=== PATIENT | female | born 1950 | race Caucasian/White ===

== ENCOUNTER 2021-03-04 06:21 | Day surgery (SDC) | payer MEDICARE, OTHER ==
[2021-02-25 12:18] LABS: BASOPHILS % (AUTO) 0.3 % (0-1); EOSINOPHILS # (AUTO) 0.1 X10'3 (0-0.9); LYMPHOCYTES % (AUTO) 21.4 % (21-51); MEAN CORPUSCULAR HEMOGLOBIN 32.7 PG (27.0-31.0); MEAN CORPUSCULAR HGB CONC 33.5 g/dL (33.0-36.5); MEAN CORPUSCULAR VOLUME 97.6 FL (78-98); MEAN PLATELET VOLUME 7.8 FL (7.4-10.4); MONOCYTES # (AUTO) 0.8 X10'3 (0-0.9); MONOCYTES % (AUTO) 8.4 % (2-12); NEUTROPHILS # (AUTO) 6.4 X10'3 (1.8-7.7); NEUTROPHILS % (AUTO) 68.9 % (42-75); PRE OP HEMATOCRIT 41.3 % (35.0-45.0); PRE OP HEMOGLOBIN 13.8 g/dL (12.0-16.0); PRE OP PLATELET COUNT 297 X10'3 (140-440); RED BLOOD COUNT 4.23 X10'6 (4.20-5.60); RED CELL DISTRIBUTION WIDTH 13.3 % (11.5-14.5)
[2021-02-25 12:30] LABS: ALBUMIN 4.1 G/DL (3.4-5.0); ALBUMIN/GLOBULIN RATIO 1.4 (1.1-1.5); ALKALINE PHOSPHATASE 95 IU/L (46-116); BLOOD UREA NITROGEN 12 MG/DL (7-18); CALCIUM 9.1 MG/DL (8.5-10.1); CHLORIDE 101 MMOL/L (99-107); CREATININE 0.92 MG/DL (0.40-0.90); PRE OP ALT 57 U/L (30-65); PRE OP ANION GAP 11 (8-16); PRE OP AST 37 U/L (10-37); PRE OP BILIRUB, TOTAL 0.5 MG/DL (0.0-1.0); PRE OP GLUCOSE 115 MG/DL (70-104); PRE OP SODIUM 139 MMOL/L (135-145); TOTAL CARBON DIOXIDE 27.4 MMOL/L (24-32); TOTAL PROTEIN 7.1 G/DL (6.4-8.2); eGFR 60 ML/MIN
[~2021-03-04] VITALS: Ht 162.6 cm; Wt 77.6 kg
[~2021-03-04 06:21] MED LIST: ALBU0.63 NEB; ATOR10TA70 PO; DILT30TA10 PO; FLUO10CA28 PO; LEVO13CA4; LISI10TA27 PO; LORA5TAB9 PO; albuterol 2.5 MG/3 ML nebule NEB PRN; cefazolin/dext.iso 2gm/100ml IV ONE; famotidine 20mg tablet PO ONE; ringers solution, lacted 1,000 ML IV SCH
[2021-03-04 06:30] VITALS: BP 135/80
[2021-03-04] MEDS ORDERED: BUPIVAcaine/PF 2.5mg/ml (0.25%) 10ml vial ONE (06:39)
[2021-03-04] MEDS ORDERED: fentaNYL/PF 50MCG/1 ML 2ML syringe ONE (08:00)
[2021-03-04] MEDS ORDERED: midazolam 1 mg/ML 2ml injection ONE (08:01)
[2021-03-04] MEDS ORDERED: propofol inj 20 ML IV ONE (08:20)
[2021-03-04] MEDS ORDERED: LIDOcaine 0.5% (5mg/ml) 50ml vial ONE (08:20)
[2021-03-04 08:35] VITALS: BP 137/75
[2021-03-04] MEDS ORDERED: meperidine/PF 25mg/ml syringe IV PRN (08:35)
[2021-03-04] MEDS ORDERED: proCHLORperazine 10 MG/2 ml inj IV PRN (08:35)
[2021-03-04] MEDS ORDERED: hydrALAZINE 20mg/ml inj. IV PRN (08:35)
[2021-03-04] MEDS ORDERED: morphine 2 MG/ML inj. syringe IV PRN (08:35)
[2021-03-04] MEDS ORDERED: labetalol 20mg/4ml (5mg/ml) syringe IV PRN (08:35)
[2021-03-04] MEDS ORDERED: morphine 4 MG/ML inj SYRINge IV PRN (08:35)
[2021-03-04] MEDS ORDERED: ringers solution, lacted 1,000 ML IV SCH (08:35)
[2021-03-04] MEDS ORDERED: ondansetron/PF 4mg/2ml inj IV PRN (08:35)
[2021-03-04] MEDS ORDERED: acetaminophen 1,000mg/100ml IV 100 ML IV PRN (08:35)
[2021-03-04] MEDS ORDERED: fentaNYL/PF 50MCG/1 ML 2ML syringe IV PRN ×2 (08:35)
--- NOTE | 2021-03-04 08:35 | NUR ---
PT ARRIVED TO RECOVERY VIA GURNEY WITH DR. REESE-REPORT GIVEN, PT AWAKE AND ALERT, VSS, DENIES PAIN, CSM INTACT TO LEFT HAND, WRAP TO LEFT HAND AND ELBOW-CDI. PIV 20G TO RIGHT HAND.
[2021-03-04 08:40] VITALS: BP 137/75
[2021-03-04 09:00] VITALS: BP 150/83
[2021-03-04 09:10] VITALS: BP 134/78
--- NOTE | 2021-03-04 09:15 | NUR ---
PT UP GETING DRESSED, ABLE TO VOID, DENIES PAIN, CSM-INTACT, VSS, PIV D/CD-CANNULA INTACT, DISCHARGE INSTRUCTIONS GIVEN TO PT-ALL QUESTIONS ANSWERED, PT TAKEN WITH ALL BELONGINGS AND ICE TO IN VEHICLE, REMINDED TO WEAR CPAP FOR NEXT 24HRS WHILE SITTING/RESTING.
== END 2021-03-04 09:15 | disposition home or self-care (01) ==
LOC: PAS 06:21 → EDUNIT# 09:00 → PAS 09:15
PROVIDERS: ATTEND Orthopaedic Surgery Hand Surgery
DX: G56.02 Carpal tunnel syndrome, left upper limb (principal); G56.22 Lesion of ulnar nerve, left upper limb; M18.0 Bilateral primary osteoarthritis of first carpometacarpal joints; E03.9 Hypothyroidism, unspecified; F41.9 Anxiety disorder, unspecified; I10 Essential (primary) hypertension; I25.10 Atherosclerotic heart disease of native coronary artery without angina pectoris; G47.33 Obstructive sleep apnea (adult) (pediatric); J44.9 Chronic obstructive pulmonary disease, unspecified; Z88.2 Allergy status to sulfonamides; Z72.89 Other problems related to lifestyle; Z98.890 Other specified postprocedural states; Z79.899 Other long term (current) drug therapy; Z79.82 Long term (current) use of aspirin; Z98.84 Bariatric surgery status; Z87.891 Personal history of nicotine dependence; Z20.822 Contact with and (suspected) exposure to COVID-19
CPT/HCPCS: 36415; 64718; 64721; 80053; 82948; 85025; J2001; J2250; J2704; J3010; J3490; U0003; U0005; Z7506; Z7512; A4215; A6449; J7120

== ENCOUNTER 2021-04-01 06:52 | Day surgery (SDC) | payer MEDICARE, OTHER ==
[2021-03-25 14:52] LABS: BASOPHILS % (AUTO) 0.1 % (0-1); EOSINOPHILS % (AUTO) 0.3 % (0-6); LYMPHOCYTES # (AUTO) 2.3 X10'3 (1.1-4.8); LYMPHOCYTES % (AUTO) 26.4 % (21-51); MEAN CORPUSCULAR HEMOGLOBIN 32.4 PG (27.0-31.0); MEAN CORPUSCULAR HGB CONC 33.6 g/dL (33.0-36.5); MEAN CORPUSCULAR VOLUME 96.5 FL (78-98); MEAN PLATELET VOLUME 7.9 FL (7.4-10.4); MONOCYTES # (AUTO) 0.8 X10'3 (0-0.9); MONOCYTES % (AUTO) 8.6 % (2-12); NEUTROPHILS # (AUTO) 5.7 X10'3 (1.8-7.7); NEUTROPHILS % (AUTO) 64.6 % (42-75); PRE OP HEMOGLOBIN 13.8 g/dL (12.0-16.0); PRE OP PLATELET COUNT 334 X10'3 (140-440); RED BLOOD COUNT 4.24 X10'6 (4.20-5.60); RED CELL DISTRIBUTION WIDTH 13.1 % (11.5-14.5)
[2021-03-25 15:13] LABS: ALBUMIN 4.3 G/DL (3.4-5.0); ALBUMIN/GLOBULIN RATIO 1.3 (1.1-1.5); ALKALINE PHOSPHATASE 94 IU/L (46-116); BLOOD UREA NITROGEN 22 MG/DL (7-18); BUN/CREATININE RATIO 26.8 (6.6-38.0); CHLORIDE 97 MMOL/L (99-107); CREATININE 0.82 MG/DL (0.40-0.90); PRE OP ALT 54 U/L (30-65); PRE OP ANION GAP 7 (8-16); PRE OP AST 31 U/L (10-37); PRE OP BILIRUB, TOTAL 0.6 MG/DL (0.0-1.0); PRE OP GLUCOSE 102 MG/DL (70-104); PRE OP POTASSIUM 4.2 MMOL/L (3.4-5.1); PRE OP SODIUM 135 MMOL/L (135-145); TOTAL CARBON DIOXIDE 31.2 MMOL/L (24-32); TOTAL PROTEIN 7.7 G/DL (6.4-8.2); eGFR 69 ML/MIN
[~2021-04-01] VITALS: Ht 162.6 cm; Wt 77.9 kg
[~2021-04-01 06:52] MED LIST changes: -ALBU0.63 NEB; +ALBU8.5H17 INH; +AMYL1CAP52 PO; +ASPI-1 PO; -ATOR10TA70 PO; +ATOR40TA PO; +DILT180C89 PO; -DILT30TA10 PO; -FLUO10CA28 PO; +FLUO20CA39 PO; -LEVO13CA4; +LEVO75TA PO; -LISI10TA27 PO; +LISI40TA13 PO; -LORA5TAB9 PO; +TRAZ-256 PO; -albuterol 2.5 MG/3 ML nebule NEB PRN; -cefazolin/dext.iso 2gm/100ml IV ONE; +cefazolin/dext.iso 2gm/50ml 50 ML IV ONE
[2021-04-01 07:00] VITALS: BP 155/81
[2021-04-01] MEDS ORDERED: LIDOcaine 0.5% (5mg/ml) 50ml vial ONE (08:04)
[2021-04-01] MEDS ORDERED: morphine 4 MG/ML inj SYRINge IV PRN (08:10)
[2021-04-01] MEDS ORDERED: morphine 2 MG/ML inj. syringe IV PRN (08:10)
[2021-04-01] MEDS ORDERED: fentaNYL/PF 50MCG/1 ML 2ML syringe IV PRN ×2 (08:10)
[2021-04-01] MEDS ORDERED: ondansetron/PF 4mg/2ml inj IV PRN (08:10)
[2021-04-01] MEDS ORDERED: ringers solution, lacted 1,000 ML IV SCH (08:10)
[2021-04-01] MEDS ORDERED: fentaNYL/PF 50MCG/1 ML 2ML syringe ONE (08:16)
[2021-04-01] MEDS ORDERED: MIDAZolam 1 MG/ML 5ML VIAL ONE (08:17)
[2021-04-01] MEDS ORDERED: BUPIVAcaine/PF 2.5mg/ml (0.25%) 10ml vial IJ ONE (08:28)
[2021-04-01 08:52] VITALS: BP 125/62
--- NOTE | 2021-04-01 08:52 | NUR ---
Received from OR via [facility] IN STABEL CONDITION , accompanied by Anesthesiologist and EMPLOYEE RELATIONS ASSISTANT report given by EMPLOYEE RELATIONS ASSISTANT AND Anesthesiolgist. Addendum: 04/01/21 at 0951 by Melva Ceballos RN Amended: Links added.
[2021-04-01 09:00] VITALS: BP 151/78
[2021-04-01 09:10] VITALS: BP 161/81
[2021-04-01 09:20] VITALS: BP 152/72
--- NOTE | 2021-04-01 09:32 | NUR ---
PATIENT DISCHARGED FROM PACU IN STABLE CONDITION AFTER WRITTEN AND VERBAL DISCHARGE INSTRUCTIONS GIVEN. PATIENT GAVE VERBAL UNDERSTANDING OF INSTRUCTIONS GIVEN. PATIENT LEFT FACILITY VIA WHEELCHAIR WITH RN. Addendum: 04/01/21 at 0951 by Melva Ceballos RN Amended: Links added.
== END 2021-04-01 09:32 | disposition home or self-care (01) ==
LOC: PAS 06:52
PROVIDERS: ATTEND Orthopaedic Surgery Hand Surgery
DX: G56.01 Carpal tunnel syndrome, right upper limb (principal); M18.0 Bilateral primary osteoarthritis of first carpometacarpal joints; F43.10 Post-traumatic stress disorder, unspecified; G47.30 Sleep apnea, unspecified; I10 Essential (primary) hypertension; E03.9 Hypothyroidism, unspecified; E66.9 Obesity, unspecified; Z68.29 Body mass index [BMI] 29.0-29.9, adult; Z79.899 Other long term (current) drug therapy; Z79.82 Long term (current) use of aspirin; Z88.2 Allergy status to sulfonamides; Z98.890 Other specified postprocedural states; Z72.89 Other problems related to lifestyle; Z87.891 Personal history of nicotine dependence; Z20.822 Contact with and (suspected) exposure to COVID-19
CPT/HCPCS: 36415; 64721; 80053; 82948; 85025; J2001; J2250; J3010; J3490; U0003; U0005; Z7506; Z7512; A4215; J7120